=== PATIENT | female | born 1985 | race Caucasian/White ===

== ENCOUNTER → 2017-09-30 | Outpatient (CLI) | payer OTHER | END | disposition home or self-care (01) | LOC: SURG 15:01 | PROVIDERS: ATTEND Anesthesiology Pain Medicine | DX: M54.5 Low back pain (principal); M54.2 Cervicalgia | CPT/HCPCS: 99204 ==

== ENCOUNTER → 2020-06-18 | Outpatient (CLI) | payer OTHER ==
--- NOTE | 2020-06-18 13:38 | RAD ---
EXAM: Right foot, 3 views. HISTORY: Pain. COMPARISON: None. FINDINGS: 3 views of the right foot are obtained. There is no fracture, dislocation or subluxation. T here is no foreign body. IMPRESSION: No acute osseous finding. Electronically signed by: Mercedes Barney MD (06/18/2020 1:36 PM) [id number]
== END ==
LOC: RAD 12:52
PROVIDERS: ATTEND Specialist
DX: M25.571 Pain in right ankle and joints of right foot (principal)
CPT/HCPCS: 73630

== ENCOUNTER → 2020-10-05 | Emergency (ER) | payer OTHER ==
[~2020-10-05] VITALS: Ht 162.6 cm; Wt 82.7 kg
[~2020-10-05] MED LIST: ACETAMINOPHEN 500 MG TABLET PO ONE
--- NOTE | 2020-10-05 13:55 | RAD ---
Exam performed: X-ray right hand HISTORY: Smashed right hand. DATE OF SERVICE: 10/05/2020. COMPARISON: None available FINDINGS: AP, lateral and oblique views of the right hand is obtained. Normal alignment is preserved. There is no acute fracture or dislocation. Mild soft tissue swelling is seen. No foreign body. IMPRESSION: Mild soft tissue swelling without underlying bony abnormality. Electronically signed by: Madalyn Ordaz MD (10/05/2020 1:53 PM) [facility]
[2020-10-05 14:05] VITALS: BP 134/86
--- NOTE | 2020-10-05 14:09 | PHYS DOC ---
General Adult EDM: Chief Complaint: HAND PROBLEM HPI: HPI: Patient is a 35-year-old female who presents with left hand pain. Patient states that she was trying to put a trampoline together when she smashed her hand with the spring. Patient has bruising to her left hand. Full range of motion intact. Denies taking anything for pain. Patient has been icing left hand. (SOHA BROUSSARD APRN) Review of Systems: Review of Systems: Constitutional: Denies fever or chills Eyes: Denies change in visual acuity HENT: Denies nasal congestion or sore throat Respiratory: Denies cough or shortness of breath Cardiovascular: Denies chest pain or edema GI: Denies abdominal pain, nausea, vomiting, bloody stools or diarrhea : Denies dysuria Musculoskeletal: Reports left hand pain Integument: Reports bruising to left hand Neurologic: Denies headache, focal weakness or sensory changes Endocrine: Denies polyuria or polydipsia Lymphatic: Denies swollen glands Psychiatric: Denies depression or anxiety (SOHA BROUSSARD APRN) Current Medications: Current Meds: Current Medications Medications (Trade) Dose Ordered Sig/Reina Start Time Stop Time Status Last Admin Dose Admin Acetaminophen (Tylenol) 500 mg 1X ONCE 10/05/20 14:15 10/05/20 14:16 UNV (SOHA BROUSSARD APRN) Allergies: Allergies: Allergies Coded Allergies Type Severity Reaction Last Updated Verified No Known Drug Allergies 10/05/20 No (SOHA BROUSSARD APRN) Physical Exam: PE: Constitutional: Well developed, well nourished, no acute distress, non-toxic appearance. [] HENT: Normocephalic, atraumatic, bilateral external ears normal, oropharynx moist, no oral exudates, nose normal. [] Eyes: PERRLA, EOMI, conjunctiva normal, no discharge. [] Neck: Normal range of motion, no tenderness, supple, no stridor. [] Cardiovascular:Heart rate regular rhythm, no murmur [] Lungs & Thorax: Bilateral breath sounds clear to auscultation [] Abdomen: Bowel sounds normal, soft, no tenderness, no masses, no pulsatile masses. [] Skin: Bruising to left hand Back: No tenderness, no CVA tenderness. [] Extremities: Left hand tenderness, no cyanosis, ROM intact, no edema. [] Neurologic: Alert and oriented X 3, normal motor function, normal sensory function, no focal deficits noted. [] Psychologic: Affect normal, judgement normal, mood normal. [] (SOHA BROUSSARD APRN) EKG: EKG: [] (SOHA BROUSSARD APRN) Radiology/Procedures: Radiology/Procedures: [] (SOHA BROUSSARD APRN) Heart Score: C/O Chest Pain: No Risk Factors: Risk Factors: DM, Current or recent (<one month) smoker, HTN, HLP, family history of CAD, obesity. Risk Scores: Score 0 - 3: 2.5% MACE over next 6 weeks - Discharge Home Score 4 - 6: 20.3% MACE over next 6 weeks - Admit for Clinical Observation Score 7 - 10: 72.7% MACE over next 6 weeks - Early Invasive Strategies (SOHA BROUSSARD APRN) Course & Med Decision Making: Course & Med Decision Making Pertinent Labs and Imaging studies reviewed. (See chart for details) [] 35-year-old female presents with left hand pain after smashing her hand with a trampoline spring. Patient reports pain and bruising to her left hand. Patient has full range of motion. Left hand x-ray ordered to rule out fracture. X-ray of left hand was negative for fracture. Patient given Tylenol for discomfort. Discussed radiology results with patient. Explained to patient to take Tylenol and ibuprofen at home for pain. Rice instructions given. Patient is appreciative and okay with discharge plan. (SOHA BROUSSARD APRN) Course & Med Decision Making I oversaw on the above date of service of this patient. This patient was evaluated, examined, treated, and dispositioned from the emergency department by the mid-level practitioner. Although I was working at the time and available for consultation, no assistance was requested and I did not see or immediately direct the care of this patient. I reviewed note and agree to findings, plan of care, and disposition as stated. Electronically signed, Randell Hodge DO (RANDELL HODGE DO) Gisel Disclaimer: Gisel Disclaimer: This electronic medical record was generated, in whole or in part, using a voice recognition dictation system. (SOHA BROUSSARD APRN) Departure Departure: Impression: Primary Impression: Hand injury Qualified Codes: S69.91XA - Unspecified injury of right wrist, hand and finger(s), initial encounter Disposition: HOME / SELF CARE / HOMELESS Condition: STABLE Referrals: RAHEEM GARCIA MD (PCP) Patient Instructions: Hand Contusion, [id number], RICE - Routine Care for Injuries Additional Instructions: You are seen in the emergency room for right hand pain. X-ray of your hand was negative for any acute fractures. You can use Tylenol at home for discomfort. Ice to the area to help with swelling. If you continue to have pain follow-up with your PCP or return to the emergency room with worsening symptoms or concerns. EMERGENCY DEPARTMENT GENERAL DISCHARGE INSTRUCTIONS Thank you for coming to [facility] (ED) today and trusting us with you care. We trust that you had a positivie experience in our Emergency Department. If you wish to speak to the department management, you may call the director at [phone]. YOUR FOLLOW UP INSTRUCTIONS ARE FOLLOWS: 1. Do you have a private Doctor? If you do not have a private doctor, please ask for a resource list of physicians or clinics that may be able to assist you with follow up care. 2. The Emergency Physician has interpreted your x-rays. The X-Ray specialist will also review them. If there is a change in the findings, you will be notified in 48 hours when at all possible. 3. A lab test or culture has been done, your results will be reviewed and you will be notified if you need a change in treatment. ADDITIONAL INSTRUCTIONS AND INFORMATION: 1. Your care today has been supervised by a physician who is specially trained in emergency care. Many problems require more than one evaluation for a complete diagnosis and treatment. We recommend that you schedule your follow up appointment as recommended to ensure complete treatment of you illness or injury. If you are unable to obtain follow up care and continue to have a problem, or if your condition worsens, we recommend that you return to the ED. 2. We are not able to safely determine your condition over the phone nor are we able to give sound medical advice over the phone. For these safety reasons, if you call for medical advice we will ask you to come to the ED for further evaluation. 3. If you have any questions regarding these discharge instructions please call the ED at [phone]. SAFETY INFORMATION: In the interest of safety, wellness, and injury prevention; we encourage you to wear your sealbelt, if you smoke; quite smoking, and we encourage family to use a protective helmet for bicycling and other sporting events that present an increased risk for head injury. IF YOUR SYMPTOMS WORSEN OR NEW SYMPTOMS DEVELOP, OR YOU HAVE CONCERNS ABOUT YOUR CONDITION; OR IF YOUR CONDITION WORSENS WHILE YOU ARE WAITING FOR YOUR FOLLOW UP APPOINTMENT; EITHER CONTACT YOUR PRIMARY CARE DOCTOR, THE PHYSICIAN WHOSE NAME AND NUMBER YOU WERE GIVEN, OR RETURN TO THE ED IMMEDIATELY. SOHA BROUSSARD APRN Oct 05, 2020 14:09 RANDELL HODGE DO Oct 06, 2020 07:14
== END ==
LOC: ER 13:06
DX: S60.222A Contusion of left hand, initial encounter (principal); W22.8XXA Striking against or struck by other objects, initial encounter; Y93.89 Activity, other specified; Y92.89 Other specified places as the place of occurrence of the external cause; Y99.8 Other external cause status
CPT/HCPCS: 73130; 99283